=== PATIENT | female | born 1985 | race African-American/Black ===

== ENCOUNTER → 2022-10-21 | Day surgery (SDC) | payer BC ==
[~2022-10-21] MED LIST: ACETAMINOPHEN 1000 MG/100 ML 100 ML IV ONE; AIRBORNE GUMMI1 EACH; BLACK SEED OIL; BUSPIRONE HCL5 MG PO; DEXAMETHASONE SOD PHOS INJ 4 MG/ML SDV ONE; FENTANYL CITRATE/PF 100MCG/2 ML INJ ONE; KETOROLAC TROMETHAMINE 30 MG/ML VIAL ONE; LACTATED RINGER'S 1,000 ML ONE; LEXAPRO10 MG PO; LIDOCAINE HCL 2% LOCAL INJ 5 ML SDV VIAL INJ ONE; MIDAZOLAM HCL 2 MG/2 ML VIAL ONE; ONDANSETRON HCL INJ 2MG/ML 2ML 2 MG/ML VIAL ONE; POVIDONE IODINE 0.05% 0.05 % ML PO ONE; PROPOFOL IV EMULSION 10 MG/ML 20 ML VIAL ONE; SEVOFLURANE INHAL SOLN 250 ML PEN BTL ONE; UNISOM50 MG PO; VITAMIN D310 MCG
[2022-10-21 12:20] VITALS: BP 130/78
== END | disposition home or self-care (01) ==
LOC: OR 08:57
PROVIDERS: ATTEND Specialist
DX: M22.2X1 Patellofemoral disorders, right knee (principal); M22.41 Chondromalacia patellae, right knee; M65.9 Synovitis and tenosynovitis, unspecified; M17.0 Bilateral primary osteoarthritis of knee; M22.2X2 Patellofemoral disorders, left knee; Z79.899 Other long term (current) drug therapy
CPT/HCPCS: 29873; 81025; J0131; J0690; J1100; J1885; J2001; J2405; J2704; J7121; J2250